=== PATIENT | female | born 1985 | race Caucasian/White ===

== ENCOUNTER 2017-06-07 11:18 | Emergency (ER) | payer MEDICAID ==
[2017-06-07] MEDS ORDERED: LORazepam 0.5 MG TAB PO ONE (11:51)
--- NOTE | 2017-06-07 12:09 | EDPHY ---
HPI/HX/ROS/PE/MDM Narrative: CHIEF COMPLAINT: Vaginal bleeding HPI: The patient is a 31-year-old female who underwent an elective approximately 2 years ago followed by IUD placement. She states that ever since placement of her IUD she has had intermittent cramping and discomfort during sex. She had an ultrasound performed approximately 1 year ago that showed the IUD was in normal position but she has not been able to find the strings since that time. She has started a new relationship and has had been having more sexual intercourse recently than normal which has corresponded with increasing pain. This morning after intercourse she noted some bright red blood per vagina. She denies fever. She has an appointment with her clinical phlebotomist tomorrow morning but was very concerned about the possibility that her IUD has punctured her uterus and presents for further workup. She denies discharge from vagina or abdominal pain. REVIEW OF SYSTEMS: Aside from elements discussed in the HPI, a comprehensive 10-point review of systems was reviewed and is negative. PMH: History of elective , no other significant history. SOCIAL HISTORY: Single, works for a [employer]. PHYSICAL EXAM: General:Patient is alert, in no acute distress. ENT:Eyes are normal to inspection. ENT inspection normal. Neck: Normal inspection. Full range of motion. Respiratory:No respiratory distress. Breath sounds normal bilaterally. Cardiovascular: Regular rate and rhythm. Strong peripheral pulses. Normal cap refill. Abdomen:The abdomen is nontender to palpation. There are no peritoneal signs. There are normal bowel sounds. Back: Normal to inspection. No tenderness to palpation. Skin: Normal color. No rash. Warm and dry. Extremities: Normal appearance. Full range of motion. Neuro: Oriented x3. Normal motor function. Normal sensory function. MDM: This patient presents with somewhat chronic vaginal pain and new vaginal bleeding after intercourse. After extensive discussion with her regarding her workup, she elects to undergo an ultrasound here today despite the fact that she has an appointment with her clinical phlebotomist tomorrow morning. Thankfully, this ultrasound is negative for ectopic , IUD malfunction or other significant pathology. 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 She does have an appointment with her clinical phlebotomist tomorrow and will undergo pelvic then. She understands that I am unable to rule out any vaginal trauma or infection without further testing. Her vital signs are stable and she is comfortable and I think she is appropriate for close outpatient follow-up and further workup. - Data Points Imaging Results: Imaging Impressions Pelvic/Renal Ultrasound 06/07/17 11:51 Impression: 1. No ovarian torsion, adnexal masses or significant free fluid in the pelvis. 2. Minimal endocervical fluid. 3. IUD appears in good position. Findings and recommendations discussed with Emergency Department physician, Dr. Luisito Sunshine at 1253 hours on June 07, 2017. Final report concurs with initial preliminary interpretation. Laboratory Results: 06/07/17 11:50 Urine Test NEGATIVE Medications Given: Discontinued Medications Lorazepam (Ativan) 0.5 mg PO EDNOW ONE Stop: 06/07/17 11:52 Last Admin: 06/07/17 11:55 Dose: 0.5 mg General Time Seen by Provider: 06/07/17 11:23 Initial Vital Signs: Initial Vital Signs Temperature (C) 37 C 06/07/17 11:21 Heart Rate 84 06/07/17 11:21 Respiratory Rate 18 06/07/17 11:21 Blood Pressure 105/69 06/07/17 11:21 O2 Sat (%) 94 06/07/17 11:21 O2 Delivery Mode Room Air Allergies/Adverse Reactions: acetaminophen [From Vicodin] Allergy (Verified 06/07/17 11:27) Pt reports nausea codeine Allergy (Verified 06/07/17 11:27) Pt reports hives hydrocodone [From Vicodin] Allergy (Verified 06/07/17 11:27) Pt reports nausea ibuprofen Allergy (Verified 06/07/17 11:27) Pt reports abdominal pain oxycodone [From Percocet] Allergy (Verified 06/07/17 11:27) Pt reports "feeling weird" Home Medications: Medication Instructions Recorded Diazepam [Valium 5 MG (*)] 5 mg PO ONCE PRN #1 tab 06/07/17 Departure - Departure Disposition: Home, Routine, Self-Care Clinical Impression: Vaginal bleeding Condition: Good Instructions: Additional Information, Diazepam (By mouth) Additional Instructions: Follow-up with your clinical phlebotomist tomorrow as scheduled. Return to the ED for fever, severe pain, worsening bleeding. Take valium as prescribed prior to your appointment, but do not drive on this medication. Referrals: NONE *PRIMARY CARE P,. [Primary Care Provider] - As per Instructions Prescriptions: Diazepam [Valium 5 MG (*)] 5 mg PO ONCE PRN #1 tab PRN Reason: Anxiety
[2017-06-07 13:14] VITALS: BP 112/64
== END 2017-06-07 13:10 | disposition home or self-care (01) ==
LOC: CED 11:18
DX: N93.9 Abnormal uterine and vaginal bleeding, unspecified (principal)
CPT/HCPCS: 76856-PO; 81025-PO

== ENCOUNTER 2017-06-25 12:28 | Emergency (ER) | payer MEDICAID ==
[2017-06-25 12:36] VITALS: BP 132/92
--- NOTE | 2017-06-25 13:15 | EDPHY ---
H & P Time Seen by Provider: 06/25/17 12:42 HPI/ROS: CHIEF COMPLAINT: Right knee pain and swelling History by patient HISTORY OF PRESENT ILLNESS: 31-year-old woman with a history of chronic right knee pain and swelling who is status post arthroscopy 7 years ago for this who says had a normal arthroscopy at that time presents with a flare this chronic knee pain and swelling. She says 2 days ago she was squatting to put on the license plate of her car and then the next morning her knee seemed more swollen than usual and painful. She has taken some naproxen with minimal relief. She denies any fever or chills. There has been no redness. She is able to bear weight with pain. No other joints are involved. She does drink some alcohol and had margaritas 2 nights before the knee swelled. She has had the knee aspirated in the past and said that"all the tests were negative". She has had recent negative GC and chlamydia test related to getting her IUD removed. She has not had any vaginal discharge. She says she came in today because she called the advice nurse because it seemed worse than usual and she was recommended to get seen to make sure it was not a DVT. REVIEW OF SYSTEMS: As in HPI, and all other systems reviewed and are negative Smoking Status: Former smoker Physical Exam: General Appearance: Alert and no distress. Well-appearing, nontoxic Head: Normocephalic, atraumatic Eyes: Pupils equal and round no injection. Extraocular movements are intact. Musculoskeletal: Neck is supple and nontender. Extremities: Right knee positive swelling, no erythema or calor, full range of motion with some pain passively and actively. There is no calf or lower leg swelling. Positive test to lower leg. DP pulses 2+ and equal bilaterally. Full range of motion and strength in her ankle and toes. Distal sensation is intact. Right hip has full range of motion without pain. Lymph: No inguinal adenopathy Skin: No rashes or lesions except as described above. Constitutional: Initial Vital Signs Temperature (C) 37.4 C 06/25/17 12:31 Heart Rate 68 06/25/17 12:31 Respiratory Rate 16 06/25/17 12:31 Blood Pressure 132/92 H 06/25/17 12:31 O2 Sat (%) 97 06/25/17 12:31 O2 Delivery Mode Room Air Allergies/Adverse Reactions: codeine Allergy (Verified 06/25/17 12:37) Pt reports hives hydrocodone [From Vicodin] Allergy (Verified 06/25/17 12:37) Pt reports nausea ibuprofen Allergy (Verified 06/25/17 12:37) Pt reports abdominal pain oxycodone [From Percocet] Allergy (Verified 06/25/17 12:37) Pt reports "feeling weird" Home Medications: Medication Instructions Recorded Diclofenac Sodium 1% [Diclofenac 4 gm TP QID PRN #1 tube 06/25/17 Sodium 1% Gel] Meloxicam 7.5 mg PO DAILY #10 tablet 06/25/17 MDM/Departure - MDM ED Course/Re-evaluation: 31-year-old woman presents with flare of chronic right knee swelling suggestive of some kind of chronic arthritis. Given the chronicity of her condition I do not think any acute imaging was necessary today. Given the negative fluid aspiration test in the past I doubt gout. I also doubt GC arthritis given her recent negative tests and the chronicity. We discussed the possibilities of some rheumatological conditions and I am recommending close follow-up with this. Will go ahead and treat her symptomatically with oral anti-inflammatory pain medicine. Ibuprofen has given her bad stomach pain in the past. We will give her a trial of meloxicam. Patient asked about topical treatment and she is also given a prescription for Voltaren. Patient is referred to Orthopedics and Sports Medicine for further follow-up and workup. - Depart Disposition: Home, Routine, Self-Care Clinical Impression: Swelling of knee joint, right Knee pain, right Qualifiers: Chronicity: unspecified Qualified Code(s): M25.561 - Pain in right knee Condition: Good Instructions: Swollen Knee Joint (ED) Additional Instructions: You were seen by Dr. Carrie Bowman today. Try topical Voltaren gel for your pain and swelling or try the oral meloxicam once daily for pain and swelling. Continue to place ice on her knee and use of wrap or sleeve as needed for comfort. I recommend follow up with an orthopedist, Dr. Phillips, or sports medicine physician . Follow up for your skin lesion with a charge account authorizer. I recommend Dr. Green. Return for any worsening including but not limited to fever, inability to bear weight on her knee or other new concerns. Prescriptions: Diclofenac Sodium 1% [Diclofenac Sodium 1% Gel] 4 gm TP QID PRN #1 tube PRN Reason: pain Meloxicam 7.5 mg PO DAILY #10 tablet Referrals: NONE *PRIMARY CARE P,. [Primary Care Provider] - As per Instructions
== END 2017-06-25 13:30 | disposition home or self-care (01) ==
LOC: CED 12:28
DX: M25.461 Effusion, right knee (principal); Z87.891 Personal history of nicotine dependence